=== PATIENT | male | born 1995 | race Two or more races ===

== ENCOUNTER 2019-07-04 07:40 | Day surgery (SDC) | payer OTHER ==
[~2019-07-04 07:40] MED LIST: cefTRIAXone 2 GM VIAL ONE
[2019-07-04] MEDS ORDERED: GLYCOPYRROLATE 1 MG/5 ML VIAL IVP ONE (07:41)
[2019-07-04] MEDS ORDERED: NEOSTIGMINE 1 MG/1 ML 10 ML MDV IVP ONE (07:41)
[2019-07-04] MEDS ORDERED: ROCURONIUM 50 MG/5 ML VIAL IVP ONE (07:41)
[2019-07-04] MEDS ORDERED: DEXAMETHASONE 4 MG/ML VIAL IVP ONE (07:41)
[2019-07-04] MEDS ORDERED: KETOROLAC 30 MG/ML VIAL IVP ONE (07:41)
[2019-07-04] MEDS ORDERED: PROPOFOL 200 MG/20 ML VIAL IVP ONE (07:41)
[2019-07-04] MEDS ORDERED: fentaNYL 100 MCG/2 ML VIAL IVP ONE (07:41)
[2019-07-04] MEDS ORDERED: ACETAMINOPHEN 1,000 MG/100 ML 100 ML IV ONE (07:41)
[2019-07-04] MEDS ORDERED: LACTATED RINGERS 1,000 ML IV ONE ×2 (07:49→12:45)
--- NOTE | 2019-07-04 08:11 | ANESTHESIA ---
Pre-Anesthesia VS, & Labs - Diagnosis Left clavicle retained hardware - Procedure Remove hardware from left clavicle Vital Signs: Temp Pulse Resp BP Pulse Ox 37.1 C 84 18 129/90 H 97 07/04/19 07:58 07/04/19 07:58 07/04/19 07:58 07/04/19 07:58 07/04/19 07:58 Height 5 ft 9 in Weight (kg) 89.9 kg - NPO >8 hours, Other (Water at 0400) - Lab Results Lab results reviewed: No Home Medications and Allergies Home Medications: Ambulatory Orders No Known Home Medications 07/01/19 No Known Home Medications 07/01/19 Allergies/Adverse Reactions: Allergies Allergy/AdvReac Type Severity Reaction Status Date / Time No Known Drug Allergies Allergy Verified 07/04/19 08:05 Anes History & Medical History - Anesthetic History Anesthesia Complications: reports: No previous complications Family history of Anesthesia Complications: Denies Family history of Malignant Hyperthermia: Denies - Medical History Cardiovascular: reports: None Pulmonary: reports: None Gastrointestinal: reports: None Urinary: reports: None Neuro: reports: None Musculoskeletal: reports: Other Endocrine/Autoimmune: reports: None Blood Disorders: reports: None Skin: reports: None Smoking Status: Current every day smoker (Vapes) - Surgical History Orthopedic: Other Exam General: Alert, Oriented x3 Dental: WNL, TMJ Mouth Opening: Greater than 4 Fingerbreadths Neck Mobility: Normal Mallampati classification: I Thyromental Distance: greater than 6 cm Plan Anesthesia Type: General Consent for Procedure(s) Verified and Reviewed: Yes Code Status: Attempt Resuscitation ASA classification: 2-Mild systemic disease Is this case an emergency?: No
[2019-07-04] MEDS ORDERED: LIDOCAINE 1%-EPI 1:100000 20 ML MDV ONE (08:45)
[2019-07-04] MEDS ORDERED: BUPIVACAINE 0.25% PF 30 ML VIAL ONE (08:45)
[2019-07-04] MEDS ORDERED: LIDOCAINE 1%-EPI 1:100000 20 ML MDV SUBQ ONE ×2 (09:50)
[2019-07-04] MEDS ORDERED: BUPIVACAINE 0.25% PF 30 ML VIAL SUBQ ONE ×2 (09:50)
[2019-07-04] MEDS ORDERED: oxyCODONE 5 MG TABLET PO PRN (12:14)
[2019-07-04] MEDS ORDERED: ONDANSETRON 4 MG/2 ML VIAL IVP PRN (12:14)
--- NOTE | 2019-07-04 12:35 | OPERATIVE REPORT ---
Operative Report - General Procedure Date: 07/04/19 - Other Other Information/Narrative: Date of Procedure: July 04, 2019 Planned Procedure: Left clavicle symptomatic hardware removal Pre-op diagnosis: Left clavicle retained surgical hardware superior and anterior plate Procedure performed: Left clavicle symptomatic hardware removal Post-op diagnosis: Left clavicle retained surgical hardware, superior and anterior plate Primary Surgeon: PHI MARTE Secondary Surgeon: Anesthesia: General LMA EBL: 50 ml IMPLANTS: 2 Synthes clavicle plates removed, 8 screws removed, one lag screw remains from the index surgery POSTOPERATIVE PLAN: 0-2 weeks-Sling for comfort. Gentle range of motion as tolerated 2-6 weeks-progress motion and activity, no heavy lifting INDICATION FOR SURGERY: 23-year-old [id number] male who is approximately 12 months status post left clavicle open reduction internal fixation with anterior and superior plating and bone grafting. The surgery was performed at [facility], prior to his PCS. He presented to the orthopedic clinic in [facility] to establish care, and reported ongoing and continued pain localized primarily to the medial end of the plate and superior plate. He underwent extensive postoperative dilatation attempted desensitization, all of which failed to relieve his symptoms. We discussed pursuing hardware removal at the 12-month point, as well as continued nonoperative management. Due to the continued pain and limitations in activities, he elected to proceed with plate removal at 12-month postop point. Risks of surgery were discussed to include pain, bleeding, infection, damage to nearby structures, chest wall numbess, refracture, hardware breakage, stiffness, need for further surgeries, DVT, PE, stroke, and even . Questions answered and informed consent was signed. PROCEDURE IN DETAIL: The patient was met in the preoperative holding on the day of the procedure. Left clavicle was signed. Consent was verified. He desired to proceed. The patient brought to the operating room and surrendered to anesthesia. Once general anesthesia was obtained they were placed in the modified beach chair position with bony prominences well-padded. They were then prepped and draped in the standard sterile fashion. A surgical timeout was held to confirm the patient procedure, identity, procedure, laterality, allergies, images, and antibiotics. All were in agreement we proceeded. Incision was marked out along the prior incision, and the planned incision was then infiltrated with 1% lidocaine with epinephrine for pain management and to assist with hemostasis. The shoulder was then enveloped in Ioban. The skin was sharply incised using a 15 blade, followed by Bovie electrocautery in the subcutaneous fat, Metzenbaum scissors were then used to deepen the dissection to the layer of the clavipectoral fascia, taking care to look for and protect branches of the supraclavicular nerves. The superior subcutaeous flap was developed at the level of the fascia to allow approach to the anterior and superior surface of the clavicle. [place] and pandey elevators were then used to better elevate the soft tissue off both the superior and anterior plate. Once the plates were exposed, a [id number] was used to remove the screws. Once the screws were removed, the plates were gently freed up using a [place] and osteotomes and removed without difficulty. Rongeurs were used to clean any residual fibrous tissue off the superior and anterior surface of the clavicle, and the screw holes were gently curetted. C-arm fluoroscopy was used to confirm removal of all intended hardware. The wound was then copiously irrigated and closed in layers. The deep myofascial layer was closed using 0 Vicryl in interrupted [id number] fashion. Following repair of this layer the wound was again irrigated, and the platysma and deep dermal layer was closed using 0 Vicryl in interrupted fashion. The subcutaneous tissues were closed using 2-0 Vicryl in interrupted fashion, and the skin was closed with a running subcuticular 4-0 Monocryl. This incision was reinforced with Mastisol and Steri-Strips. 30 mL of quarter percent Marcaine plain was injected into the adan-incisional soft tissues. Xeroform gauze was placed, followed by 4 x 4 gauze and OpSite dressing. The drapes were taken down, the arm was placed in a simple sling. Anesthesia was reversed, he was extubated, awakened and transferred to the recovery room in stable condition.
[2019-07-04] MEDS ORDERED: oxyCODONE 5 MG TABLET ONE (13:14)
[2019-07-04 13:28] VITALS: BP 131/74
--- NOTE | 2019-07-04 14:04 | XRAY Report ---
Reason: CLAVICLE Procedure Date: 07/04/2019 Accession Number: [id number] / [id number] Procedure: [place] - OR C-Arm Procedure CPT Code: Final Report FULL RESULT: EXAM: FLUOROSCOPIC GUIDANCE EXAM DATE: 07/04/2019 11:45 AM. CLINICAL HISTORY: CLAVICLE. COMPARISON: None. FINDINGS: Fluoroscopic images demonstrate hardware in the clavicle. IMPRESSION: Fluoroscopic guidance provided for clavicle surgery. Total fluoroscopy time: 1.1 minutes. Number of images: 2. RADIA
== END 2019-07-04 07:41 | disposition home or self-care (01) ==
LOC: SDS 07:40
PROVIDERS: ATTEND Orthopaedic Surgery
PROC: 0PPB04Z Removal of Internal Fixation Device from Left Clavicle, Open Approach (ICD-10-PCS; principal; 2019-07-04 09:15)
DX: T84.84XA Pain due to internal orthopedic prosthetic devices, implants and grafts, initial encounter (principal); Y83.8 Other surgical procedures as the cause of abnormal reaction of the patient, or of later complication, without mention of misadventure at the time of the procedure; S42.002S Fracture of unspecified part of left clavicle, sequela; F17.290 Nicotine dependence, other tobacco product, uncomplicated